=== PATIENT | male | born 1960 | race Hispanic/Latino ===

== ENCOUNTER 2022-07-18 12:46 | Inpatient (IN) | payer OTHER ==
[2022-07-18 13:43] LABS: ALT (SGPT) 32 U/L (8-55); AST (SGOT) 62 U/L (5-34); Acetaminophen Less than 10.0 mcg/mL (10.0-30.0); Albumin 3.2 g/dL (3.4-4.8); Alcohol Less than 10 mg/dL (Less than 10); Alkaline Phosphatase 212 U/L (40-110); Anion Gap 13 mmol/L (10-20); BUN (Urea Nitrogen) 10 mg/dL (8.4-25.7); Bilirubin, Total 3.7 mg/dL (0.2-1.2); Calc. Creatinine Clearance 0 mL/min (70-130); Calcium 8.8 mg/dL (7.8-10.44); Carbon Dioxide 19 mmol/L (23-31); Chloride 109 mmol/L (98-107); Estimated GFR 100; Glucose 118 mg/dL (80-115); Potassium 3.6 mmol/L (3.5-5.1); Protein, Total 7.2 g/dL (5.8-8.1); Salicylate Less than 8.0 mg/dL (15.0-30.0); Sodium 137 mmol/L (136-145)
[2022-07-18 14:03] LABS: #Monocytes 0.4 10x3/uL (0.0-1.1); #Neutrophils 1.6 10x3/uL (1.5-8.4); %Basophils 1.2 % (0.0-2.0); %Eosinophils 0.9 % (0.0-6.0); %Neutrophils 47.6 % (40.0-75.0); Hemoglobin 15.3 g/dL (13.5-17.5); Mean Corpuscular HGB CONC 35.5 g/dL (32.0-36.0); Mean Corpuscular Hemoglobin 35.8 pg (27.0-33.0); Mean Corpuscular Volume 100.9 fl (81.2-95.1); Mean Platelet Volume 11.9 fl (7.4-10.4); RBC Distribution Width 14.6 % (11.5-14.5); Red Blood Cell (RBC) Count 4.27 10x6/uL (4.32-5.72); White Blood Cell (WBC) Count 3.3 10x3/uL (3.5-10.5)
[2022-07-18 14:18] LABS: Platelet Count 58 10x3/uL (150-450)
[2022-07-18 14:19] LABS: Platelet Morphology Comment Appears Decreased
[2022-07-18 14:20] LABS: RBC Morphology Normal
[2022-07-18 15:38] LABS: SARS-CoV-2 NAA Rapid Test Not Detected (NotDetected)
[2022-07-18 16:05] LABS: Bilirubin Neg (Negative); Blood, Urine Negative (Negative); Clarity Clear (Clear); Glucose, Urine (Dipstick) Normal (Negative); Ketone, Urine Negative (Negative); Leukocyte Negative (Negative); Nitrite Negative (Negative); Protein, Urine (Dipstick) Negative (Neg-Trace)
[2022-07-18] MEDS ORDERED: Magnesium 2 GM/50 ML BAG (IN WATER) ONE (16:14)
[2022-07-18 16:24] LABS: Amphetamine Not Detected (NotDetected); Barbiturates Screen Not Detected (NotDetected); Benzodiazepine Screen Not Detected (NotDetected); Cocaine Metabolite Screen Not Detected (NotDetected); Methadone Not Detected (NotDetected); Methamphetamine Not Detected (NotDetected); Opiate Screen Not Detected (NotDetected); Oxycodone Screen Not Detected (NotDetected); Phencyclidine (PCP) Not Detected (NotDetected); THC/Cannabinoid Screen Not Detected (NotDetected); Tricyclic Screen Not Detected (NotDetected)
[2022-07-18 16:38] LABS: Magnesium 1.6 mg/dL (1.6-2.6)
[2022-07-18] MEDS ORDERED: Ondansetron ODT 4 MG TAB PO PRN (17:46)
[2022-07-18] MEDS ORDERED: Ondansetron PF 4 MG/2 ML Vial IVP PRN (17:46)
[2022-07-18] MEDS ORDERED: Diltiazem 125 MG/25 ML SDV ONE (18:33)
[2022-07-19] MEDS ORDERED: Diltiazem 125 MG in Sodium Chloride 0.9% 100 ML IVPB SCH (01:00)
[2022-07-19 04:01] LABS: #Monocytes 0.5 10x3/uL (0.0-1.1); #Neutrophils 1.6 10x3/uL (1.5-8.4); %Basophils 1.1 % (0.0-2.0); %Eosinophils 2.3 % (0.0-6.0); %Lymphocytes 40.3 % (18.0-47.0); %Monocytes 13.2 % (0.0-10.0); Hemoglobin 14.8 g/dL (13.5-17.5); Mean Corpuscular HGB CONC 35.7 g/dL (32.0-36.0); Mean Platelet Volume 11.6 fl (7.4-10.4); Platelet Count 51 10x3/uL (150-450); RBC Distribution Width 14.6 % (11.5-14.5); Red Blood Cell (RBC) Count 4.11 10x6/uL (4.32-5.72); White Blood Cell (WBC) Count 3.6 10x3/uL (3.5-10.5)
[2022-07-19 04:05] LABS: ALT (SGPT) 30 U/L (8-55); AST (SGOT) 69 U/L (5-34); Albumin 2.8 g/dL (3.4-4.8); Alkaline Phosphatase 151 U/L (40-110); Anion Gap 12 mmol/L (10-20); BUN (Urea Nitrogen) 8 mg/dL (8.4-25.7); Bilirubin, Total 4.1 mg/dL (0.2-1.2); Calc. Creatinine Clearance 0 mL/min (70-130); Carbon Dioxide 20 mmol/L (23-31); Chloride 110 mmol/L (98-107); Estimated GFR 105; Globulin 3.4 g/dL (2.4-3.5); Glucose 99 mg/dL (80-115); Magnesium 1.7 mg/dL (1.6-2.6); Potassium 3.8 mmol/L (3.5-5.1); Protein, Total 6.2 g/dL (5.8-8.1); Sodium 138 mmol/L (136-145)
[2022-07-19] MEDS ORDERED: Magnesium 2 GM/50 ML BAG (IN WATER) ONE (08:29)
[2022-07-19] MEDS ORDERED: Magnesium 2 GM/50 ML(in water) 2 GM in Premix Bag 1 BAG IVPB SCH (09:00)
[2022-07-19] MEDS: Propranolol 10 MG TAB PO SCH ×2 (09:20→20:48)
[2022-07-19] MEDS: Furosemide 20 MG TAB PO SCH (09:20)
[2022-07-19] MEDS: Rifaximin 550 MG TAB PO SCH ×2 (09:44→20:48)
[2022-07-19] MEDS: Spironolactone 25 MG TAB PO SCH ×2 (09:44→20:48)
[2022-07-19 13:38] VITALS: BMI 34.9
[2022-07-20 05:39] LABS: #Basophils 0.1 10x3/uL (0.0-0.2); #Eosinphils 0.2 10x3/uL (0.0-0.5); #Monocytes 0.5 10x3/uL (0.0-1.1); #Neutrophils 1.9 10x3/uL (1.5-8.4); %Basophils 1.3 % (0.0-2.0); %Lymphocytes 43.8 % (18.0-47.0); %Monocytes 10.8 % (0.0-10.0); %Neutrophils 39.7 % (40.0-75.0); Hemoglobin 14.1 g/dL (13.5-17.5); Mean Corpuscular HGB CONC 34.8 g/dL (32.0-36.0); Mean Corpuscular Hemoglobin 35.3 pg (27.0-33.0); Mean Corpuscular Volume 101.3 fl (81.2-95.1); Mean Platelet Volume 12.2 fl (7.4-10.4); Platelet Count 52 10x3/uL (150-450); RBC Distribution Width 14.7 % (11.5-14.5); White Blood Cell (WBC) Count 4.8 10x3/uL (3.5-10.5)
[2022-07-20 05:47] LABS: ALT (SGPT) 32 U/L (8-55); AST (SGOT) 73 U/L (5-34); Albumin 2.8 g/dL (3.4-4.8); Alkaline Phosphatase 156 U/L (40-110); Anion Gap 11 mmol/L (10-20); BUN (Urea Nitrogen) 12 mg/dL (8.4-25.7); Bilirubin, Total 3.7 mg/dL (0.2-1.2); Calc. Creatinine Clearance 167 mL/min (70-130); Carbon Dioxide 19 mmol/L (23-31); Chloride 108 mmol/L (98-107); Estimated GFR 102; Globulin 3.5 g/dL (2.4-3.5); Glucose 99 mg/dL (80-115); Protein, Total 6.3 g/dL (5.8-8.1); Sodium 134 mmol/L (136-145)
[2022-07-20 06:06] LABS: RBC Morphology Normal
[2022-07-20 06:07] LABS: Platelet Morphology Comment Appears Decreased
[2022-07-20] MEDS: Furosemide 20 MG TAB PO SCH (09:24)
[2022-07-20] MEDS: Propranolol 10 MG TAB PO SCH (09:24)
[2022-07-20] MEDS: Rifaximin 550 MG TAB PO SCH (09:24)
[2022-07-20] MEDS: Spironolactone 25 MG TAB PO SCH (09:25)
[2022-07-20 13:14] VITALS: BP 111/68; TEMP 97.6
== END 2022-07-20 16:00 | DRG 443 ==
LOC: CSHERS 12:46 → EEVIPCON 22:21 → CSHERHOLD 22:21 → CSHTELE 07-19 12:28
PROVIDERS: ADMIT Student in an Organized Health Care Education/Training Program; ATTEND Student in an Organized Health Care Education/Training Program
DX: K76.82 Hepatic encephalopathy (principal); I48.0 Paroxysmal atrial fibrillation; F20.9 Schizophrenia, unspecified; Z20.822 Contact with and (suspected) exposure to COVID-19; D69.6 Thrombocytopenia, unspecified; K74.60 Unspecified cirrhosis of liver; I50.9 Heart failure, unspecified; B19.20 Unspecified viral hepatitis C without hepatic coma; Z79.899 Other long term (current) drug therapy; Z86.73 Personal history of transient ischemic attack (TIA), and cerebral infarction without residual deficits
CPT/HCPCS: 36415; 70450; 80053; 80306; 80307; 81003; 82140; 83690; 83735; 85025; 93005; 94760; 94762; 96361; 96365; 96366; 96367; 96376; J3475

== ENCOUNTER 2023-01-27 19:33 | Inpatient (IN) | payer OTHER ==
[2023-01-27] MEDS ORDERED: NOREPINEPHRINE 8 MG/250 ML-D5W 250 ML ONE (19:45)
[2023-01-27] MEDS ORDERED: Glucagon 1 MG/ML KIT ONE (19:47)
[2023-01-27 20:55] LABS: ALT (SGPT) 35 U/L (8-55); AST (SGOT) 92 U/L (5-34); Albumin 1.7 g/dL (3.4-4.8); Alkaline Phosphatase 62 U/L (40-110); Anion Gap 20 mmol/L (10-20); BUN (Urea Nitrogen) 48 mg/dL (8.4-25.7); Bilirubin, Total 7.8 mg/dL (0.2-1.2); CK (CPK) 350 U/L (30-200); Calc. Creatinine Clearance 0 mL/min (70-130); Carbon Dioxide 10 mmol/L (23-31); Chloride 96 mmol/L (98-107); Estimated GFR 15; Globulin 2.3 g/dL (2.4-3.5); Glucose 185 mg/dL (80-115); Potassium 4.4 mmol/L (3.5-5.1); Sodium 122 mmol/L (136-145)
[2023-01-27 20:55] LABS: Bilirubin 3+ (Negative); Blood, Urine 250 (Negative); Clarity Cloudy (Clear); Glucose, Urine (Dipstick) Normal (Negative); Ketone, Urine 5 mg/dL (Negative); Leukocyte 25 (Negative); Nitrite Negative (Negative); Protein, Urine (Dipstick) 100 mg/dl (Neg-Trace); Specific Gravity, Urine 1.025 (1.005-1.030)
[2023-01-27 20:58] LABS: Hematocrit 31.5 % (38.8-50.0); Hemoglobin 10.4 g/dL (13.5-17.5); Mean Corpuscular Hemoglobin 35.1 pg (27.0-33.0); Mean Corpuscular Volume 106.4 fl (81.2-95.1); Platelet Count 29 10x3/uL (150-450); RBC Distribution Width 16.8 % (11.5-14.5); Red Blood Cell (RBC) Count 2.96 10x6/uL (4.32-5.72); White Blood Cell (WBC) Count 8.3 10x3/uL (3.5-10.5)
[2023-01-27 21:00] LABS: INR-International Normal Ratio 3.5; PTT 45.3 sec (22.0-33.0); Prothrombin Time 36.4 sec (9.5-12.1)
[2023-01-27 21:01] LABS: Troponin I Less than 0.010 ng/mL (< 0.028)
[2023-01-27 21:02] LABS: Amphetamine Not Detected (NotDetected); Barbiturates Screen Not Detected (NotDetected); Benzodiazepine Screen Not Detected (NotDetected); Cocaine Metabolite Screen Not Detected (NotDetected); Methadone Not Detected (NotDetected); Methamphetamine Not Detected (NotDetected); Opiate Screen Not Detected (NotDetected); Oxycodone Screen Not Detected (NotDetected); Phencyclidine (PCP) Not Detected (NotDetected); THC/Cannabinoid Screen Not Detected (NotDetected); Tricyclic Screen Not Detected (NotDetected)
[2023-01-27 21:05] LABS: Calcium 6.2 mg/dL (7.8-10.44)
[2023-01-27 21:14] LABS: Acetaminophen Less than 10 mcg/mL (10.0-30.0); Alcohol Less than 10.0 mg/dL (Less than 10); Lipase 77 U/L (8-78); Magnesium 1.5 mg/dL (1.6-2.6); Salicylate Less than 8.0 mg/dL (15.0-30.0)
[2023-01-27 21:18] LABS: MDiff Complete? YES
[2023-01-27 21:22] LABS: Bacteria/HPF 2+ HPF (None Seen); CAUTI Indications for Culture Alt mental st,lethar; RBC/HPF Greater than 50 HPF (0-3); WBC/HPF Greater Than 50 HPF (0-3)
[2023-01-27 21:23] LABS: Urine Culture Reflex Yes Yes
[2023-01-27 21:24] LABS: Band 42 % (5-11); Eosinophils 1 % (0-10); Lymphocytes 17 % (21-51); Metamyelocyte 10 % (0-0); Monocytes 9 % (0-10); Neutrophil 18 % (42-75); Nucleated RBC (Manual Ct) 6 % (0); Reactive Lymphocytes 3 % (0-10)
[2023-01-27 21:26] LABS: Platelet Adequacy Comment Platelets Decreased; Polychromasia MODERATE = 3-4 cells (100X) (0-2/hpf); Vacuoles MODERATE
[2023-01-27] MEDS ORDERED: Cefepime 2 GM VIAL ONE (21:27)
[2023-01-27] MEDS ORDERED: Vancomycin 1 GM VIAL ONE (21:27)
[2023-01-27 21:49] LABS: Actual Bicarbonate (HCO3v) 11.3 mEq/L (22-28); Base Excess -17.5 mEq/L (-2 - +2); Calcium, Ionized (venous) 0.91 mmol/L (1.16-1.32); Chloride (VBG) 93 mmol/L (98-106); Critical Notified By: CP.PH; Hematocrit-VBG 38 % (42.0-52.0); Hemoglobin (Hb) 12.8 g/dL (13.1-17.2); Puncture Site Other Site; RapidComm Collect By LAB.YY; Sodium 120 mmol/L (133-146); pH (venous) 7.099 (7.32-7.43)
[2023-01-27] MEDS ORDERED: Sodium Bicarbonate 150 MEQ in Dextrose 5% in Water 1,000 ML IV SCH (23:15)
[2023-01-27 23:18] LABS: Anion Gap 21 mmol/L (10-20); BUN (Urea Nitrogen) 48 mg/dL (8.4-25.7); Calc. Creatinine Clearance 0 mL/min (70-130); Carbon Dioxide 11 mmol/L (23-31); Chloride 94 mmol/L (98-107); Estimated GFR 15; Glucose 130 mg/dL (80-115); Potassium 4.6 mmol/L (3.5-5.1); Sodium 121 mmol/L (136-145)
[2023-01-27 23:25] LABS: Calcium 6.4 mg/dL (7.8-10.44)
[2023-01-27] MEDS ORDERED: Sodium Bicarbonate 75 MEQ in Sodium Chloride 0.45% 1,000 ML IV SCH (23:45)
[2023-01-27] MEDS ORDERED: Ondansetron PF 4 MG/2 ML Vial IVP PRN (23:55)
[2023-01-28] MEDS ORDERED: Midazolam HCl 2 mg/2 ml Vial ONE
[2023-01-28] MEDS ORDERED: NOREPINEPHRINE 8 MG/250 ML-D5W 250 ML ONE (00:34)
[2023-01-28] MEDS ORDERED: EPINEPHrine 1 MG/ML VIAL ONE (00:35)
[2023-01-28 00:43] LABS: Lactic Acid 10.7 mmol/L (0.5-2.2)
[2023-01-28] MEDS ORDERED: Vancomycin Dose by Levels Sliding Scale (Wt > 99) FS SCH (01:15)
[2023-01-28 01:37] VITALS: BMI 41.3
[2023-01-28] MEDS ORDERED: Magnesium 2 GM/50 ML(in water) 2 GM in Premix 1 BAG IVPB SCH (01:45)
[2023-01-28] MEDS ORDERED: Dexmedetomidine In 0.9 % NaCl 100 ML IVPB SCH (01:45)
[2023-01-28] MEDS: Albumin 25% 25 GM/100 ML BOT IVPB SCH ×4 (01:57→18:45)
[2023-01-28] MEDS: Hydrocortisone Sod Succ/PF 100 mg/2 ml Vial IVP SCH ×3 (01:57→18:14)
[2023-01-28] MEDS: Pantoprazole 40 MG VIAL IVP SCH ×2 (01:57→14:25)
[2023-01-28 01:58] LABS: D-Dimer Test 9.97 mg/L FEU (0.19-0.50); INR-International Normal Ratio 3.3; Prothrombin Time 35.2 sec (9.5-12.1)
[2023-01-28] MEDS: Sodium Bicarbonate 150 MEQ in Dextrose 5% in Water 1,000 ML IV SCH ×2 (01:59→06:25)
[2023-01-28] MEDS ORDERED: Meropenem 1 GM in Sodium Chloride 0.9% 100 ML IVPB SCH ×2 (02:00→06:00)
[2023-01-28] MEDS ORDERED: FENTANYL 2,000MCG/100-0.9%NACL 100 ML IVPB SCH (02:00)
[2023-01-28] MEDS ORDERED: Vancomycin 1 GM in Sodium Chloride 0.9% 250 ML 250 ML IVPB SCH ×2 (02:00→09:00)
[2023-01-28] MEDS ORDERED: Sodium Bicarb 50 MEQ/50 ML VIAL IVP SCH ×5 (02:01→10:00)
[2023-01-28] MEDS: Vasopressin 20 UNITS, Admixture Fee 1 EACH in Sodium Chloride 0.9% 50 ML IV SCH ×4 (02:15→19:34)
[2023-01-28 03:19] LABS: Hematocrit 33.7 % (38.8-50.0); Hemoglobin 11.2 g/dL (13.5-17.5); Mean Corpuscular HGB CONC 33.2 g/dL (32.0-36.0); Mean Corpuscular Volume 105.3 fl (81.2-95.1); Mean Platelet Volume 12.4 fl (7.4-10.4); Platelet Count 38 10x3/uL (150-450); RBC Distribution Width 17.8 % (11.5-14.5); White Blood Cell (WBC) Count 8.3 10x3/uL (3.5-10.5)
[2023-01-28 03:24] LABS: MDiff Complete? YES
[2023-01-28 03:25] LABS: ALV-art Gradient 451.275 mmHg (0-20); Actual Bicarbonate (HCO3a) 12.5 mEq/L (22-28); Base Excess (BEa) -14.3 mEq/L (-2.0 to +3.0); CO2 Tension 32.5 mmHg (35.0-45.0); Calcium, Ionized (arterial) 0.95 mmol/L (1.12-1.30); Carboxyhemoglobin (COHb) 0.2 gm% (0.0-3.0); Critical Notified By: CP.PH; Hematocrit-ABG 38 % (42.0-52.0); Hemoglobin (Hb) 12.9 g/dL (14.0-18.0); O2 Tension (PaO2), arterial 221.1 mmHg (> 80.0); Potassium - ABG Lab 4.17 mmol/L (3.70-5.30); Puncture Site LRA; RapidComm Collect By CP.PH; pH, Arterial 7.204 (7.35-7.45)
[2023-01-28] MEDS ORDERED: Dextrose 5% in Water 1,000 ML IV PRN (03:29)
[2023-01-28] MEDS ORDERED: Glucagon 1 MG/ML KIT IM PRN (03:29)
[2023-01-28] MEDS ORDERED: Dextrose 50% Abboject 50 ML SYRINGE SLOW IVP PRN (03:29)
[2023-01-28 03:30] LABS: INR-International Normal Ratio 2.4; PTT 40.5 sec (22.0-33.0); Prothrombin Time 25.2 sec (9.5-12.1)
[2023-01-28 03:35] LABS: ALT (SGPT) 50 U/L (8-55); AST (SGOT) 151 U/L (5-34); Albumin 2.4 g/dL (3.4-4.8); Alkaline Phosphatase 77 U/L (40-110); Anion Gap 24 mmol/L (10-20); BUN (Urea Nitrogen) 48 mg/dL (8.4-25.7); Bilirubin, Total 10.7 mg/dL (0.2-1.2); Calc. Creatinine Clearance 32 mL/min (70-130); Carbon Dioxide 13 mmol/L (23-31); Chloride 91 mmol/L (98-107); Estimated GFR 14; Globulin 2.5 g/dL (2.4-3.5); Glucose 117 mg/dL (80-115); Potassium 4.3 mmol/L (3.5-5.1); Protein, Total 4.9 g/dL (5.8-8.1); Sodium 124 mmol/L (136-145)
[2023-01-28] MEDS: NOREPINEPHRINE 8 MG/250 ML-D5W 250 ML IVPB SCH ×6 (03:38→23:06)
[2023-01-28 03:44] LABS: Calcium 6.5 mg/dL (7.8-10.44); Lactic Acid 12.5 mmol/L (0.5-2.2)
[2023-01-28 03:54] LABS: Band 51 % (5-11); Lymphocytes 9 % (21-51); Metamyelocyte 15 % (0-0); Monocytes 4 % (0-10); Myelocyte 10 % (0-0); Neutrophil 7 % (42-75); Nucleated RBC (Manual Ct) 7 % (0); Other Cell Types 1; Promyelocytes 3 % (0-0)
[2023-01-28 03:55] LABS: Reflex for Review?? YES
[2023-01-28 03:56] LABS: Platelet Adequacy Comment Platelets Decreased; Polychromasia SLIGHT = 2-3 cells (100X) (0-2/hpf); Toxic Granulation MODERATE; Vacuoles MODERATE
[2023-01-28] MEDS: EPINEPHrine 4 MG in Dextrose 5% in Water 250 ML IV SCH ×5 (07:18→20:15)
[2023-01-28 08:17] LABS: Hematocrit 34.3 % (38.8-50.0); Hemoglobin 11.3 g/dL (13.5-17.5); Mean Corpuscular HGB CONC 32.9 g/dL (32.0-36.0); Mean Corpuscular Hemoglobin 35.9 pg (27.0-33.0); Mean Corpuscular Volume 108.9 fl (81.2-95.1); Mean Platelet Volume 13.3 fl (7.4-10.4); Platelet Count 31 10x3/uL (150-450); RBC Distribution Width 18.6 % (11.5-14.5); Red Blood Cell (RBC) Count 3.15 10x6/uL (4.32-5.72); White Blood Cell (WBC) Count 18.9 10x3/uL (3.5-10.5)
[2023-01-28 08:18] LABS: Anion Gap 29 mmol/L (10-20); BUN (Urea Nitrogen) 48 mg/dL (8.4-25.7); Calc. Creatinine Clearance 31 mL/min (70-130); Carbon Dioxide 10 mmol/L (23-31); Chloride 92 mmol/L (98-107); Estimated GFR 13; Glucose 93 mg/dL (80-115); Potassium 4.9 mmol/L (3.5-5.1); Sodium 126 mmol/L (136-145)
[2023-01-28 08:23] LABS: Calcium 6.9 mg/dL (7.8-10.44)
[2023-01-28 08:53] LABS: Lactic Acid 12.9 mmol/L (0.5-2.2)
[2023-01-28 09:40] LABS: Band 45 % (5-11); Eosinophils 2 % (0-10); Lymphocytes 4 % (21-51); Metamyelocyte 4 % (0-0); Monocytes 6 % (0-10); Myelocyte 5 % (0-0); Nucleated RBC (Manual Ct) 8 % (0); Promyelocytes 4 % (0-0); Reactive Lymphocytes 4 % (0-10)
[2023-01-28 09:42] LABS: Anisocytosis SLIGHT = 6-15 cells (100X) (0-5/hpf); Macrocytosis SLIGHT = 6-15 cells (100X) (0-5/hpf); Neutrophil 26 % (42-75); Polychromasia SLIGHT = 2-3 cells (100X) (0-2/hpf)
[2023-01-28 09:44] LABS: Dohle Bodies MARKED; Large Platelets SLIGHT (None Seen); Platelet Adequacy Comment Appears Decreased; Platelet Clumps SLIGHT
[2023-01-28 09:45] LABS: Toxic Granulation MODERATE; Vacuoles SLIGHT
[2023-01-28] MEDS ORDERED: Sodium Bicarb 50 MEQ/50 ML VIAL ONE (09:48)
[2023-01-28 09:49] LABS: Burr Cells SLIGHT = 2-5 cells (100X) (0-1/hpf)
[2023-01-28] MEDS: Meropenem 500 MG in Sodium Chloride 0.9% 100 ML IVPB SCH ×2 (09:49→21:23)
[2023-01-28 10:04] LABS: MDiff Complete? YES
[2023-01-28 10:15] LABS: Actual Bicarbonate (HCO3a) 14.4 mEq/L (22-28); Base Excess (BEa) -9.7 mEq/L (-2.0 to +3.0); Carboxyhemoglobin (COHb) 0.3 gm% (0.0-3.0); Hematocrit-ABG 29 % (42.0-52.0); Hemoglobin (Hb) 9.9 g/dL (14.0-18.0); Potassium - ABG Lab 4.32 mmol/L (3.70-5.30); Puncture Site Arterial Line; pH, Arterial 7.362 (7.35-7.45)
[2023-01-28 12:05] LABS: Lactic Acid 14.6 mmol/L (0.5-2.2)
[2023-01-28 12:12] LABS: Troponin I 0.016 ng/mL (< 0.028)
[2023-01-28 17:01] LABS: Anion Gap 28 mmol/L (10-20); BUN (Urea Nitrogen) 50 mg/dL (8.4-25.7); Calc. Creatinine Clearance 28 mL/min (70-130); Carbon Dioxide 15 mmol/L (23-31); Chloride 87 mmol/L (98-107); Estimated GFR 11; Glucose 83 mg/dL (80-115); Potassium 5.2 mmol/L (3.5-5.1); Sodium 125 mmol/L (136-145)
[2023-01-28 17:06] LABS: Calcium 6.3 mg/dL (7.8-10.44); Lactic Acid 13.9 mmol/L (0.5-2.2)
[2023-01-28 17:20] LABS: Hematocrit 28.1 % (38.8-50.0); Hemoglobin 9.4 g/dL (13.5-17.5); Mean Corpuscular HGB CONC 33.5 g/dL (32.0-36.0); Mean Corpuscular Hemoglobin 35.1 pg (27.0-33.0); Mean Corpuscular Volume 104.9 fl (81.2-95.1); Platelet Count 20 10x3/uL (150-450); RBC Distribution Width 18.5 % (11.5-14.5); Red Blood Cell (RBC) Count 2.68 10x6/uL (4.32-5.72); White Blood Cell (WBC) Count 23.3 10x3/uL (3.5-10.5)
[2023-01-28 18:52] LABS: Band 35 % (5-11); Eosinophils 2 % (0-10); Lymphocytes 2 % (21-51); Metamyelocyte 16 % (0-0); Monocytes 7 % (0-10); Myelocyte 6 % (0-0); Nucleated RBC (Manual Ct) 7 % (0); Other Cell Types 3; Promyelocytes 2 % (0-0); Reactive Lymphocytes 2 % (0-10)
[2023-01-28 18:54] LABS: Neutrophil 25 % (42-75)
[2023-01-28 18:56] LABS: Anisocytosis SLIGHT = 6-15 cells (100X) (0-5/hpf); Macrocytosis SLIGHT = 6-15 cells (100X) (0-5/hpf); Ovalocytes SLIGHT = 2-5 cells (100X) (0-1/hpf)
[2023-01-28 18:59] LABS: Magnesium 1.9 mg/dL (1.6-2.6)
[2023-01-28 19:00] LABS: Dohle Bodies MARKED; Large Platelets SLIGHT (None Seen); Platelet Adequacy Comment Significant decrease; Toxic Granulation MODERATE; Vacuoles SLIGHT
[2023-01-28 19:01] LABS: Polychromasia SLIGHT = 2-3 cells (100X) (0-2/hpf)
[2023-01-28 19:02] LABS: MDiff Complete? YES
[2023-01-28] MEDS ORDERED: Sodium Bicarbonate 150 MEQ in Dextrose 5% in Water 1,000 ML IV SCH (21:30)
[2023-01-28 21:59] LABS: Anion Gap 30 mmol/L (10-20); BUN (Urea Nitrogen) 51 mg/dL (8.4-25.7); Calc. Creatinine Clearance 27 mL/min (70-130); Carbon Dioxide 14 mmol/L (23-31); Chloride 85 mmol/L (98-107); Estimated GFR 11; Glucose 66 mg/dL (80-115); Potassium 5.5 mmol/L (3.5-5.1); Sodium 123 mmol/L (136-145)
[2023-01-28 22:02] LABS: Calcium 6.2 mg/dL (7.8-10.44); Lactic Acid 15.5 mmol/L (0.5-2.2)
[2023-01-28 22:20] LABS: Band 40 % (5-11); Lymphocytes 13 % (21-51); Metamyelocyte 18 % (0-0); Monocytes 7 % (0-10); Myelocyte 6 % (0-0); Nucleated RBC (Manual Ct) 4 % (0); Other Cell Types 1
[2023-01-28 22:21] LABS: Dohle Bodies MODERATE; Toxic Granulation MODERATE
[2023-01-28 22:22] LABS: Anisocytosis SLIGHT = 6-15 cells (100X) (0-5/hpf); Macrocytosis SLIGHT = 6-15 cells (100X) (0-5/hpf); Ovalocytes SLIGHT = 2-5 cells (100X) (0-1/hpf); Platelet Adequacy Comment Appears Decreased; Vacuoles SLIGHT
[2023-01-28 22:23] LABS: Neutrophil 15 % (42-75)
[2023-01-28 22:29] LABS: Hematocrit 26.7 % (38.8-50.0); Hemoglobin 8.8 g/dL (13.5-17.5); Mean Corpuscular Hemoglobin 34.6 pg (27.0-33.0); Mean Corpuscular Volume 105.1 fl (81.2-95.1); Platelet Count 19 10x3/uL (150-450); RBC Distribution Width 18.6 % (11.5-14.5); Red Blood Cell (RBC) Count 2.54 10x6/uL (4.32-5.72); White Blood Cell (WBC) Count 28.6 10x3/uL (3.5-10.5)
[2023-01-28] MEDS ORDERED: Calcium Gluc 4.6 MEQ/10 ML (100 MG/ML) SLOW IVP SCH (23:00)
[2023-01-28] MEDS ORDERED: LOKELMA 10 GM PACKET PER TUBE SCH (23:00)
[2023-01-29] MEDS: Pantoprazole 40 MG VIAL IVP SCH ×2 (01:38→14:47)
[2023-01-29] MEDS: Hydrocortisone Sod Succ/PF 100 mg/2 ml Vial IVP SCH ×2 (01:38→11:46)
[2023-01-29] MEDS: EPINEPHrine 4 MG in Dextrose 5% in Water 250 ML IV SCH (01:41)
[2023-01-29] MEDS: NOREPINEPHRINE 8 MG/250 ML-D5W 250 ML IVPB SCH ×4 (03:02→13:58)
[2023-01-29 03:30] LABS: Hematocrit 27.3 % (38.8-50.0); Hemoglobin 9.1 g/dL (13.5-17.5); Mean Corpuscular HGB CONC 33.3 g/dL (32.0-36.0); Mean Platelet Volume 12.1 fl (7.4-10.4); Platelet Count 37 10x3/uL (150-450); RBC Distribution Width 19.5 % (11.5-14.5); White Blood Cell (WBC) Count 32.5 10x3/uL (3.5-10.5)
[2023-01-29 03:45] LABS: Vancomycin, Trough 15.8 ug/mL
[2023-01-29 03:51] LABS: Anisocytosis SLIGHT = 6-15 cells (100X) (0-5/hpf); Band 44 % (5-11); Lymphocytes 8 % (21-51); Metamyelocyte 19 % (0-0); Monocytes 6 % (0-10); Myelocyte 11 % (0-0); Neutrophil 12 % (42-75); Nucleated RBC (Manual Ct) 5 % (0)
[2023-01-29 03:52] LABS: Dohle Bodies MODERATE; Macrocytosis SLIGHT = 6-15 cells (100X) (0-5/hpf); Polychromasia SLIGHT = 2-3 cells (100X) (0-2/hpf); Toxic Granulation SLIGHT; Vacuoles SLIGHT
[2023-01-29 03:53] LABS: Lactic Acid 15.8 mmol/L (0.5-2.2); MDiff Complete? YES; Platelet Adequacy Comment Appears Decreased
[2023-01-29 03:57] LABS: ALT (SGPT) 135 U/L (8-55); AST (SGOT) 612 U/L (5-34); Albumin 2.4 g/dL (3.4-4.8); Alkaline Phosphatase 106 U/L (40-110); Anion Gap 31 mmol/L (10-20); BUN (Urea Nitrogen) 51 mg/dL (8.4-25.7); Calc. Creatinine Clearance 27 mL/min (70-130); Carbon Dioxide 14 mmol/L (23-31); Chloride 82 mmol/L (98-107); Estimated GFR 11; Glucose 111 mg/dL (80-115); Magnesium 1.9 mg/dL (1.6-2.6); Potassium 5.5 mmol/L (3.5-5.1); Protein, Total 4.4 g/dL (5.8-8.1); Sodium 121 mmol/L (136-145)
[2023-01-29 03:59] LABS: Calcium 6.2 mg/dL (7.8-10.44)
[2023-01-29] MEDS ORDERED: Digoxin 0.5 MG/2 ML AMP SLOW IVP SCH (04:00)
[2023-01-29] MEDS: Vasopressin 20 UNITS, Admixture Fee 1 EACH in Sodium Chloride 0.9% 50 ML IV SCH (04:10)
[2023-01-29 04:23] VITALS: TEMP 99.5
[2023-01-29] MEDS ORDERED: Vancomycin HCl 750 MG in Sodium Chloride 0.9% 250 ML 250 ML IVPB SCH (06:00)
[2023-01-29] MEDS ORDERED: Rifaximin 200 MG TAB PO SCH (09:00)
[2023-01-29] MEDS: Meropenem 500 MG in Sodium Chloride 0.9% 100 ML IVPB SCH (11:46)
[2023-01-29 12:32] LABS: Anion Gap 29 mmol/L (10-20); BUN (Urea Nitrogen) 52 mg/dL (8.4-25.7); Calc. Creatinine Clearance 27 mL/min (70-130); Carbon Dioxide 16 mmol/L (23-31); Chloride 82 mmol/L (98-107); Estimated GFR 11; Glucose 95 mg/dL (80-115); Potassium 5.5 mmol/L (3.5-5.1); Sodium 121 mmol/L (136-145)
[2023-01-29 12:41] LABS: Calcium 6.1 mg/dL (7.8-10.44)
[2023-01-29 12:42] LABS: Hematocrit 26.7 % (38.8-50.0); Hemoglobin 9.1 g/dL (13.5-17.5); Mean Corpuscular HGB CONC 34.1 g/dL (32.0-36.0); Mean Corpuscular Hemoglobin 35.1 pg (27.0-33.0); Mean Corpuscular Volume 103.1 fl (81.2-95.1); Mean Platelet Volume 12.3 fl (7.4-10.4); Platelet Count 50 10x3/uL (150-450); RBC Distribution Width 19.8 % (11.5-14.5); Red Blood Cell (RBC) Count 2.59 10x6/uL (4.32-5.72); White Blood Cell (WBC) Count 31.2 10x3/uL (3.5-10.5)
[2023-01-29 13:01] LABS: MDiff Complete? YES
[2023-01-29 13:06] LABS: Band 5 % (5-11); Lymphocytes 2 % (21-51); Metamyelocyte 7 % (0-0); Monocytes 3 % (0-10); Myelocyte 3 % (0-0); Neutrophil 80 % (42-75); Nucleated RBC (Manual Ct) 3 % (0)
[2023-01-29 13:12] LABS: Anisocytosis SLIGHT = 6-15 cells (100X) (0-5/hpf); Macrocytosis SLIGHT = 6-15 cells (100X) (0-5/hpf); Polychromasia SLIGHT = 2-3 cells (100X) (0-2/hpf)
[2023-01-29 13:13] LABS: Platelet Adequacy Comment Appears Decreased; Vacuoles SLIGHT
[2023-01-29] MEDS ORDERED: CALCIUM GLUC 1 GM/NS 50 ML 1 GM in Premix 1 BAG IVPB SCH (14:45)
[2023-01-29 15:42] VITALS: BP 99/52
[2023-01-29] MEDS ORDERED: Lorazepam 2 MG/ML VIAL SLOW IVP PRN (17:05)
[2023-01-29] MEDS ORDERED: Morphine 4 MG/ML VIAL SLOW IVP SCH (17:15)
[2023-01-29] MEDS ORDERED: Scopolamine 1 mg/72 hour Patch TD SCH (17:15)
[2023-01-29] MEDS ORDERED: Lorazepam 2 MG/ML VIAL SLOW IVP SCH (17:15)
[2023-01-29] MEDS: Morphine 4 MG/ML VIAL SLOW IVP PRN ×3 (17:32→18:41)
[2023-01-29] MEDS ORDERED: Rifaximin 550 MG TAB PO SCH (21:00)
== END 2023-01-30 01:43 | disposition expired | DRG 871 ==
LOC: CSHERS 19:33 → CSHICU 23:55 → EEVIPCON 23:55 → CSHIMCU 01-28 01:37
PROVIDERS: ADMIT Student in an Organized Health Care Education/Training Program; ATTEND Internal Medicine
PROC: 5A1945Z Respiratory Ventilation, 24-96 Consecutive Hours (ICD-10-PCS; principal; 2023-01-27)
PROC: 0BH17EZ Insertion of Endotracheal Airway into Trachea, Via Natural or Artificial Opening (ICD-10-PCS; 2023-01-27)
PROC: 5A2204Z Restoration of Cardiac Rhythm, Single (ICD-10-PCS; 2023-01-27)
PROC: 06HY33Z Insertion of Infusion Device into Lower Vein, Percutaneous Approach (ICD-10-PCS; 2023-01-27)
PROC: 0T9B70Z Drainage of Bladder with Drainage Device, Via Natural or Artificial Opening (ICD-10-PCS; 2023-01-27)
PROC: 0D9670Z Drainage of Stomach with Drainage Device, Via Natural or Artificial Opening (ICD-10-PCS; 2023-01-27)
PROC: 3E033XZ Introduction of Vasopressor into Peripheral Vein, Percutaneous Approach (ICD-10-PCS; 2023-01-27)
PROC: 30233L1 Transfusion of Nonautologous Fresh Plasma into Peripheral Vein, Percutaneous Approach (ICD-10-PCS; 2023-01-27)
PROC: 30233N1 Transfusion of Nonautologous Red Blood Cells into Peripheral Vein, Percutaneous Approach (ICD-10-PCS; 2023-01-27)
PROC: 30233M1 Transfusion of Nonautologous Plasma Cryoprecipitate into Peripheral Vein, Percutaneous Approach (ICD-10-PCS; 2023-01-27)
PROC: 6A550Z2 Pheresis of Platelets, Single (ICD-10-PCS; 2023-01-27)
PROC: 30233M1 Transfusion of Nonautologous Plasma Cryoprecipitate into Peripheral Vein, Percutaneous Approach (ICD-10-PCS; 2023-01-27)
PROC: 3E03329 Introduction of Other Anti-infective into Peripheral Vein, Percutaneous Approach (ICD-10-PCS; 2023-01-27)
PROC: 03JY3ZZ Inspection of Upper Artery, Percutaneous Approach (ICD-10-PCS; 2023-01-27)
PROC: 04JY3ZZ Inspection of Lower Artery, Percutaneous Approach (ICD-10-PCS; 2023-01-27)
PROC: 4A133R1 Monitoring of Arterial Saturation, Peripheral, Percutaneous Approach (ICD-10-PCS; 2023-01-28)
PROC: 30233J1 Transfusion of Nonautologous Serum Albumin into Peripheral Vein, Percutaneous Approach (ICD-10-PCS; 2023-01-28)
PROC: 30233K1 Transfusion of Nonautologous Frozen Plasma into Peripheral Vein, Percutaneous Approach (ICD-10-PCS; 2023-01-29)
DX: A41.51 Sepsis due to Escherichia coli [E. coli] (principal); D65 Disseminated intravascular coagulation [defibrination syndrome]; R65.21 Severe sepsis with septic shock; J96.01 Acute respiratory failure with hypoxia; Z51.5 Encounter for palliative care; Z66 Do not resuscitate; G93.41 Metabolic encephalopathy; K72.00 Acute and subacute hepatic failure without coma; E87.1 Hypo-osmolality and hyponatremia; N39.0 Urinary tract infection, site not specified; K76.6 Portal hypertension; R18.8 Other ascites; K80.00 Calculus of gallbladder with acute cholecystitis without obstruction; Z68.41 Body mass index [BMI] 40.0-44.9, adult; N17.9 Acute kidney failure, unspecified; K74.60 Unspecified cirrhosis of liver; W19.XXXA Unspecified fall, initial encounter; E66.01 Morbid (severe) obesity due to excess calories; E16.2 Hypoglycemia, unspecified; I48.91 Unspecified atrial fibrillation; S30.1XXA Contusion of abdominal wall, initial encounter; I12.9 Hypertensive chronic kidney disease with stage 1 through stage 4 chronic kidney disease, or unspecified chronic kidney disease; B19.20 Unspecified viral hepatitis C without hepatic coma; F20.9 Schizophrenia, unspecified; E83.42 Hypomagnesemia; D64.9 Anemia, unspecified; E87.5 Hyperkalemia; I45.10 Unspecified right bundle-branch block; E88.09 Other disorders of plasma-protein metabolism, not elsewhere classified; E83.51 Hypocalcemia; N18.30 Chronic kidney disease, stage 3 unspecified; Z86.73 Personal history of transient ischemic attack (TIA), and cerebral infarction without residual deficits; Y92.142 Bathroom in prison as the place of occurrence of the external cause; Z79.899 Other long term (current) drug therapy; Z79.2 Long term (current) use of antibiotics; Z87.891 Personal history of nicotine dependence; Z55.6 Problems related to health literacy
CPT/HCPCS: 31500; 36415; 36416; 36430; 36556; 36600; 70450; 71045; 71260; 72125; 74177; 76705; 80053; 80202; 80306; 80307; 81001; 82140; 82550; 82805; 83605; 83690; 83735; 83880; 84145; 84443; 84484; 85025; 85049; 85060; 85300; 85362; 85379; 85384; 85610; 85730; 86850; 86900; 86901; 87040; 87077; 87086; 87149; 87186; 93005; 93010; 93306; 94002; 94640; 94760; 94762; 96365; 96375; 96376; C9113; J0171; J0612; J0613; J0692; J1160; J1611; J1720; J2060; J2185; J2250; J2270; J3370; J3475; J3490; J7050; J7070; J7611; P9012; P9016; P9035; P9040; P9047; P9048; P9059